=== PATIENT | female | born 1990 | race Caucasian/White ===

== ENCOUNTER → 2019-08-03 | Outpatient (CLI) | payer MEDICAID ==
[2019-08-03 15:18] LABS: HEMATOCRIT 37 % (35-52); HEMOGLOBIN 12.5 G/DL (11.5-16.0); LYMPHOCYTES % (AUTO) 25 % (12-44); MEAN CORPUSCULAR HEMOGLOBIN 29 PG (25-34); MEAN CORPUSCULAR HGB CONC 34 G/DL (32-36); MEAN CORPUSCULAR VOLUME 86 FL (80-99); MEAN PLATELET VOLUME 8.8 FL (7.4-10.4); MONOCYTES % (AUTO) 7 % (0-12); NEUTROPHILS % (AUTO) 65 % (42-75); PLATELET COUNT 414 10^3/uL (130-400); RED CELL DISTRIBUTION WIDTH 13.1 % (10.0-14.5); WHITE BLOOD COUNT 7.9 10^3/uL (4.3-11.0)
[2019-08-03 15:19] LABS: BASOPHILS # (AUTO) 0.1 10^3/uL (0.0-0.1); BASOPHILS % (AUTO) 1 % (0-10); EOSINOPHILS # (AUTO) 0.2 10^3/uL (0.0-0.3); EOSINOPHILS % (AUTO) 2 % (0-10); MONOCYTES # (AUTO) 0.5 X 10^3 (0.0-1.0); NEUTROPHILS # (AUTO) 5.2 X 10^3 (1.8-7.8)
== END ==
LOC: LAB FS 14:47
PROVIDERS: ATTEND Family Medicine
DX: Z34.80 Encounter for supervision of other normal pregnancy, unspecified trimester (principal); Z3A.00 Weeks of gestation of pregnancy not specified
CPT/HCPCS: 36415; 80055; 86703; 87077; 87088; 87186

== ENCOUNTER 2019-08-22 12:36 | Emergency (ER) | payer MEDICAID ==
[~2019-08-22] VITALS: Ht 162.5 cm; Wt 99.6 kg
--- OUTSIDE RECORDS SUMMARY | 2019-08-22 12:41 | XMS REPORT | Continuity of Care Document ---
Author Organization Unknown Address Unknown Phone Unavailable Allergies Active Description Code Type Severity Reaction Onset Reported/Identified Relationship to Patient Clinical Status Yes NKA Drug N/A N/A Yes NKA Drug N/A N/A Medications Medication Packaging Start Date St op Date Route Dosage Sig ibuprofen 201401/31/2017 PO 800 mg / 1 tab ibuprofen 201508/27/2015 PO 800 mg / 1 tab magnesium oxide 03/12/2016 03/18/2016 PO 500 mg / 1 tab multivitamin, 01/31/2017 08/16/2018 PO 0 / 1 clindamycin topical 02/04/2017 02/07/2017 VAG 100 mg / 1 supp ibuprofen 201603/05/2017 PO 800 mg / 1 tab methylergonovine 02/19/2017 02/21/2017 PO 0.2 mg / 1 tab Problems Date Dx Coded Attending Type Code Diagnosis Diagnosed By 05/11/2014 MASTER MCINTOSH Final 795.01 Papanicolaou Smear of Cervix with Atypical Squamous Cells of 05/11/2014 MASTER MCINTOSH Final V22.1 Supervision of Other Normal 05/11/2014 MASTER MCINTOSH Final V73.81 Screening Examination for Human Papillomavirus 05/11/2014 MASTER MCINTOSH Final V73.88 Screening Examination for Other Specified Chlamydial Disease 05/11/2014 MASTER MCINTOSH Final V74.5 Screening Examination for Venereal Disease 05/11/2014 MASTER MCINTOSH Final V76.2 Screening for Malignant Neoplasms of the Cervix 08/22/2014 Santosh Duff Final V22 .1 Supervision of Other Normal 09/14/2014 Santosh Duff Final V12.00 Personal History of Unspecified Infectious and Parasit ic Dis 09/14/2014 Santosh Duff Final V73.88 Screening Examination for Other Specified Chlamydial D isease 09/14/2014 Santosh Duff Final V74 .5 Screening Examination for Venereal Disease 09/29/2014 Final 625.9 U nspecified Symptom Associated with Female Genital Organs 10/15/2014 Zoe Cortez Final 278.01 Morbid Obesity 10/15/2014 Zoe Cortez Final 642.33 Transient Hypertension of , Antepartum Condit ion or 10/15/2014 Zoe Cortez Final 642.43 Mild or Unspecified Pre-Eclampsia, Antepartum Conditio n or C 10/15/2014 Zoe Cortez Final 649.13 Obesity Complicating , Childbirth, or the Pue rperiu 10/15/2014 Zoe Cortez Final V85.43 Body mass index 50.0-59.9, adult 10/17/2014 Santosh Duff Final V22 .1 Supervision of Other Normal 10/17/2014 Santosh Duff Final V28 .6 Encounter for Screening for Streptococcus B of Mot 10/24/2014 Santosh Duff Final 278.01 Morbid Obesity 10/24/2014 Santosh Duff Final 642.43 Mild or Unspecified Pre-Eclampsia, Antepartum Conditio n or C 10/24/2014 Santosh Duff Final 649.13 Obesity Complicating , Childbirth, or the Pue rperiu 10/24/2014 Santosh Duff Final V12.09 Other Personal History of Infectious and Parasitic Dis ease 10/24/2014 Santosh Duff Final V15.82 Personal history of tobacco use. 10/24/2014 Santosh Duff Final V85.43 Body mass index 50.0-59.9, adult 10/31/2014 Zoe Cortez Final 278.01 Morbid Obesity 10/31/2014 Zoe Cortez Final 642.41 Mild or Unspecified Pre-Eclampsia, Delivered, with or withou 10/31/2014 Zoe Cortez Admitting 642.43 Mild or Unspecified Pre-Eclampsia, Antepartum Conditio n or C 10/31/2014 Zoe Cortez Final 649.11 Obesity Complicating , Childbirth, or the Pue rperiu 10/31/2014 Zoe Cortez Final 659.71 Abnormality in Heart Rate or Rhythm, Delivered, with o 10/31/2014 Zoe Cortez Final V27.0 Mother with Single Liveborn 10/31/2014 Zoe Cortez Final V85.43 Body mass index 50.0-59.9, adult 12/26/2014 Santosh Duff Final V24 .2 Routine Follow-Up 12/26/2014 Santosh Duff Final V76 .2 Screening for Malignant Neoplasms of the Cervix 08/17/2015 Rafael Srivastava Final M54.6 Pain in thoracic spine 03/12/2016 Marshall Romo Final E66.9 Obesity, unspecified 03/12/2016 Marshall Romo Final I49.3 Ventricular premature depolarization 03/12/2016 Marshall Romo Final R00.2 Palpitations 03/18/2016 JACQUELINE MOREJON Final I49.3 Ventricular premature depolarization 03/18/2016 JACQUELINE MOREJON Admitting R00.2 Palpitations 01/31/2017 Santosh Duff Final N89 .8 Other specified noninflammatory disorders of vagina 02/03/2017 Santosh Duff Final O28 .0 Abnormal hematological finding on screening of [facility] 02/03/2017 Santosh Duff Final R73 .9 Hyperglycemia, unspecified 02/03/2017 Santosh Duff Final Z3A.08 8 weeks gestation of 02/18/2017 JACQUELINE MOREJON Final O02.1 Missed 02/18/2017 JACQUELINE MOREJON Admitting O20.9 Hemorrhage in early , unspecified 02/19/2017 ROOPA HA Final O03. 9 Complete or unspecified spontaneous without complic 02/19/2017 ROOPA HA Admitting O20.9 Hemorrhage in early , unspecified 02/28/2017 Santosh Duff Final R73 .9 Hyperglycemia, unspecified 02/28/2017 Santosh Duff Final Z34.90 Encounter for supervision of normal , unspeci fied, 03/06/2017 Santosh Duff Final O03 .9 Complete or unspecified spontaneous without complic 03/12/2017 Ayan Ruiz Final M54.12 Radiculopathy, cervical region 08/16/2018 Marisol Humphrey Final E66.9 Obesity, unspecified 08/16/2018 Marisol Humphrey Final S93.40 2A Sprain of unspecified ligament of left ankle, initial encoun 08/16/2018 Marisol Humphrey Admitting S99.912A Unspecified injury of left ankle, initial encounter 08/16/2018 Marisol Humphrey Final W10.9X XA Fall (on) (from) unspecified stairs and steps, initial encou 08/16/2018 Marisol Humphrey Final X50.1X XA Overexertion from prolonged static or awkward postures, init 08/16/2018 Marisol Humphrey Final Y92.[address] in unspecified non-institutional (private) 08/16/2018 Marisol Humphrey Final Y93.01 Activity, walking, marching and hiking 08/20/2018 Gwendolyn Perez Final M25.5 72 Pain in left ankle and joints of left foot 08/20/2018 Gwendolyn Perez Final S9 9.912A Unspecified injury of left ankle, initial encounter 02/28/2019 CARMEL ROBERTS Final E66.9 Obesity, unspecified 02/28/2019 CARMEL ROBERTS Final F10.129 Alcohol abuse with intoxication, unspecified 02/28/2019 CARMEL ROBERTS Final R45.851 Suicidal ideations 02/28/2019 CARMEL ROBERTS Final S40.811A Abrasion of right upper arm, initial encounter 02/28/2019 CARMEL ROBERTS Final S40.812A Abrasion of left upper arm, initial encounter 02/28/2019 CARMEL ROBERTS Final S80.811A Abrasion, right lower leg, initial encounter 02/28/2019 CARMEL ROBERTS Final S80.812A Abrasion, left lower leg, initial encounter 02/28/2019 CARMEL ROBERTS Final X83.8XXA Intentional self-harm by other specified means, initial enco 02/28/2019 CARMEL ROBERTS Final Y90.7 Blood alcohol level of 200-239 mg/100 ml 02/28/2019 CARMEL ROBERTS Final Z68.35 Body mass index (BMI) 35.0-35.9, adult 02/28/2019 CARMEL ROBERTS Final Z72.89 Other problems related to lifestyle 02/28/2019 CARMEL ROBERTS Final Z87.891 Personal history of nicotine dependence 08/05/2019 LAURIE SCHMITZ, KYLE Douglas Ot Z34.80 ENCOUNTER FOR SUPRVSN OF NORMAL PREGNANC 08/05/2019 LAURIE SCHMITZ, KYLE Douglas Ot Z3A.00 WEEKS OF GESTATION OF NOT SPEC Procedures Code Description Performed By Per formed On 73.4 Medic al Induction of Labor SHIRA GIRON 10/26/2014 73.09 Othe r Artificial Rupture of Membranes MACKSHIRA 10/27/2014 74.1 Low C ervical Section SHIRA GIRON 10/28/2014 [id number] [facility] visit for the evalu SHIRA GIRON 08/16/2015 [id number] [facility] visit for the evalu SHIRA GIRON 03/12/2016 [id number] [facility] visit for the evalu SHIRA GIRON 03/18/2016 [id number] [facility] visit for the evalu SHIRA GIRON 02/18/2017 [id number] Intr avenous infusion, hydration; initial SHIRA GIRON 02/19/2017 [id number] Intr avenous infusion, hydration; each ad SHIRA GIRON 02/19/2017 [id number] [facility] visit for the evalu SHIRA GIRON 02/19/2017 51074 [facility] visit for the evalu SHIRA GIRON 08/16/2018 [id number] [facility] visit for the evalu SHIRA GIRON 02/28/2019 Results Test Result Range HCG, URINE QUAL - 08/16/15 23:35 HCG, Urine Qual NEGATIVE NEG Specific [place], UA >1.030 1.003-1.0 30 URINALYSIS, MICROSCOPIC EXAM - 08/16/15 23:35 WBC's, UA 0-5 /hpf OFIVE RBC, UA 0-5 /hpf OFIVE Bacteria, UA NEGATIVE /hpf NEG Squamous Epithelials, UA NEG - FEW /hpf NEGFEW Mucous PRESENT /hpf NEG BASIC METABOLIC PANEL - 03/12/16 12:47 Sodium 137 mmol/L 135-145 Potassium 3.6 mmol/L 3.6-5.0 Chloride 100 mmol/L 101-111 Carbon Dioxide, Total 25 mmol/L 21-31 Glucose Level 161 mg/dL 70-100 BUN 8 mg/dL 6-20 Creatinine 0.5 mg/dL 0.5-1.2 Calcium 8.4 mg/dL 8.5-10.5 Calculated GFR >60.0 mL/min/1.73sq >60 Anion Gap 12 mmol/L NRG MAGNESIUM - 03/12/16 12:47 Magnesium 1.9 mg/dL 1.8-2.5 PHOSPHORUS - 03/12/16 12:47 Phosphorus 2.9 mg/dL 2.5-4.6 TSH, REFLEX TO FREE T4 - 03/12/16 12:47 TSHR 0.91 mIU/mL 0.34-5.60 DRUG OF ABUSE SCREEN - 03/18/16 18:44 Amphet/Methamphet Group NOT DETECTED ND Barbiturates Group NOT DETECTED ND Benzodiazepines Group NOT DETECTED ND Cocaine NOT DETECTED ND Methadone NOT DETECTED ND Opiates Group NOT DETECTED ND Phencyclidine NOT DETECTED ND Cannabinoid (THC) NOT DETECTED ND Oxycodone Screen NOT DETECTED ND Chain Of Custody CHAIN OF CUSTODY NOT PROVID ED. RESULTS MAY ONLY BE USED FOR MEDICAL PURPOSES. NRG MAGNESIUM - 03/18/16 19:19 Magnesium 2.0 mg/dL 1.8-2.5 COMPREHENSIVE METABOLIC PANEL - 03/18/16 19:19 Sodium 135 mmol/L 135-145 Potassium 3.6 mmol/L 3.6-5.0 Chloride 97 mmol/L 101-111 Carbon Dioxide, Total 24 mmol/L 21-31 Glucose Level 122 mg/dL 70-100 BUN 15 mg/dL 6-20 Creatinine 0.4 mg/dL 0.5-1.2 Calcium 8.8 mg/dL 8.5-10.5 Total Protein 7.2 g/dL 6.0-8.0 Albumin 3.7 g/dL 3.2-5.5 Alkaline Phosphatase 78 U/L 42-121 AST (SGOT) 40 U/L 10-42 ALT (SGPT) 66 U/L 10-60 Total Bilirubin <0.2 mg/dL 0.2-1.0 Calculated GFR >60.0 mL/min/1.73sq >60 Anion Gap 14 mmol/L NRG CERVICAL/VAG CULT - 01/31/17 15:42 Specimen Description VAGINAL/CERVICAL N RG Special Requests ROUT+ NRG Gram Stain FEW GRAM POSITIVE COCCI NRG Culture NEGATIVE FOR N. GONORRHOEAE, S. AUREUS, GROUP B STREP, YEAST NRG Report Status FINAL 02/03/2017 NRG Organism CXFL NRG URINALYSIS, CULTURE IF INDICATED - 02/03 10:13 Color, UA YELLOW YELL Clarity, Urine SLIGHTLY CLOUDY Clear Glucose, Urine NEGATIVE mg/dL NEG Bilirubin, UA NEGATIVE NEG Ketones, UA NEGATIVE mg/dL NEG Specific [place], UA 1.019 1.003-1.0 30 Blood, UA NEGATIVE NEG pH, UA 7.0 5.0-9.0 Protein, UA 20 mg/dL NEG Urobilinogen, UA NORMAL mg/dL NORM Nitrites, UA NEGATIVE NEG Leukocyte Esterase, UA NEGATIVE NEG WBC's, UA 25 to 50 /hpf OFIVE RBC, UA 5 to 10 /hpf OFIVE Bacteria, UA MODERATE /hpf NEG Squamous Epithelials, UA MANY /hpf NEGFE W Hyaline Casts 2 to 5 /lpf NEG Urine Culture Indicated NO CULTURE NEEDED NOCULT Specimen Description URINE [facility] ANTIBODY SCREEN - 02/03/17 10:13 Antibody Screen NEG [facility] URINALYSIS, CULTURE IF INDICATED - 02/18 06:55 Color, UA LIGHT YELLOW YELL Clarity, Urine CLEAR Clear Glucose, Urine NEGATIVE mg/dL NEG Bilirubin, UA NEGATIVE NEG Ketones, UA NEGATIVE mg/dL NEG Specific [place], UA 1.016 1.003-1.0 30 Blood, UA MODERATE NEG pH, UA 7.0 5.0-9.0 Protein, UA 10 mg/dL NEG Urobilinogen, UA NORMAL mg/dL NORM Nitrites, UA NEGATIVE NEG Leukocyte Esterase, UA NEGATIVE NEG WBC's, UA 0-5 /hpf OFIVE RBC, UA 10 to 25 /hpf OFIVE Bacteria, UA NEGATIVE /hpf NEG Squamous Epithelials, UA NEG - FEW /hpf NEGFEW Urine Culture Indicated NO CULTURE NEEDED NOCULT Specimen Description URINE [facility] BETA-HCG, QUANTITATIVE - 02/18/17 07:09 BHCG 6419 mIU/mL [facility] Surgical Pathology - 02/19/17 08:27 SURGICALPATH Diagnosis over-read by Bouchra Erwin MD. [facility] COMPREHENSIVE METABOLIC PANEL - 02/19/17 19:43 Sodium 133 mmol/L 135-145 Potassium 3.7 mmol/L 3.6-5.0 Chloride 95 mmol/L 101-111 Carbon Dioxide, Total 23 mmol/L 21-31 Glucose Level 97 mg/dL 70-100 BUN 10 mg/dL 6-20 Creatinine 0.6 mg/dL 0.5-1.2 Calcium 8.7 mg/dL 8.5-10.5 Total Protein 7.9 g/dL 6.0-8.0 Albumin 4.3 g/dL 3.2-5.5 Alkaline Phosphatase 67 U/L 42-121 AST (SGOT) 19 U/L 10-42 ALT (SGPT) 28 U/L 10-60 Total Bilirubin 0.2 mg/dL 0.2-1.0 Calculated GFR >60.0 mL/min/1.73sq >60 Anion Gap 15 mmol/L NRG BETA-HCG, QUANTITATIVE - 02/19/17 19:43 BHCG 3518 mIU/mL NRG BETA-HCG, QUANTITATIVE - 03/06/17 09:36 BHCG 3 mIU/mL NRG DRUG OF ABUSE SCREEN - 02/28/19 05:18 Cannabinoid (THC) Not Detected Not Dete cted Creatinine, Urine, Drug Screen 41.0 mg/dL >=20.0 Chain Of Custody Not provided Complete Benzodiazepines Group Not Detected Not Detected Phencyclidine Not Detected Not Detected Barbituates Group Not Detected Not Dete cted Amph/Meth Group Not Detected Not Detect ed Oxycodone Screen Not Detected Not Detec rosemarie Opiates Group Not Detected Not Detected Methadone (Presence) Not Detected Not D etected Cocaine Not Detected Not Detected CBCA - 02/28/19 05:36 HCT 41.7 % 37.0-47.0 MPV 8.9 fL 8.0-11.7 Hgb 14.2 g/dL 12.0-16.0 RBC 4.98 M/uL 4.00-5.40 Platelet Count 425 k/uL 150-450 RDW 12.6 % 11.5-14.0 WBC 8.2 k/uL 4.0-10.5 MCHC 34.1 g/dL 32.0-36.0 MCH 28.5 pg 27.0-31.0 Platelet Clumps 0 0-100 MCV 83.7 fL 78.0-100.0 Nucleated RBC Absolute 0.0 /uL 0.0-0.0 Differential? Auto NRG HCG, SERUM QUAL - 02/28/19 05:36 HCG, Serum Qual Negative Negative ETHANOL, BLOOD - 02/28/19 05:36 Ethanol Level 233 mg/dL 0-10 SALICYLATE - 02/28/19 05:36 Salicylate Level <0.3 mg/dL 20.0-25.0 ACETAMINOPHEN - 02/28/19 05:36 Acetaminophen Level <5.0 mcg/mL 0.0-50.0 ETHANOL, BLOOD - 02/28/19 10:10 Ethanol Level 120 mg/dL 0-10 Encounters ACCT No. Visit Date/Time Discharge Status Pt. Type Provider Facility Loc./Unit Complaint [id number] 03/07/2017 12:29:00 7 23:59:59 CLS Outpatient Edwin [facility] [id number] 02/20/2017 08:35:00 7 23:59:59 CLS Outpatient Edwin [facility] [id number] 02/19/2017 08:57:47 7 23:59:59 CLS Outpatient Santosh Duff [facility] f/u ER [id number] 02/04/2017 08:59:00 7 23:59:59 CLS Outpatient Edwin [facility] [id number] 02/03/2017 08:59:00 7 23:59:59 CLS Outpatient Edwin [facility] [id number] 01/31/2017 14:51:25 7 23:59:59 CLS Outpatient MASTER MCINTOSH [facility] [employer]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 [id number] 01/27/2017 09:24:00 7 23:59:59 CLS Outpatient Edwin [facility] [id number] 05/02/2016 11:12:08 6 23:59:59 CLS Outpatient GHOSE, TAPAS [facility] [id number] 04/25/2016 09:34:45 6 23:59:59 CLS Outpatient GUASTCURT ORDOÑEZBETH [facility] pvc - palpitations [id number] 04/11/2016 00:00:00 6 23:59:59 CLS Outpatient Scanned Documents [id number] 01/18/2015 08:59:39 5 23:59:59 CLS Outpatient MENDEZ SOUZA [facility] nexplanon removal [id number] 01/17/2015 14:25:00 5 23:59:59 CLS Outpatient Edwin [facility] [id number] 11/15/2014 09:55:15 5 23:59:59 CLS Outpatient DAYNA MASTER Misael candelaria [employer] [facility] 2WPPRT [id number] 11/07/2014 14:36:49 5 23:59:59 CLS Outpatient ARNOL NICKERSON [facility] incision check [id number] 10/26/2014 12:43:35 5 23:59:59 CLS Outpatient Santosh Duff [facility] [employer] [facility] SONO FOR S>D AND GROWTH [id number] 10/17/2014 13:36:20 5 23:59:59 CLS Outpatient Santosh Duff [facility] [facility] [facility] bpp/htn in preg [id number] 10/14/2014 14:26:53 5 23:59:59 CLS Outpatient Kat Estrada [facility] [facility] ob/increased swelling/headac he [id number] 09/29/2014 10:27:51 5 23:59:59 CLS Outpatient RANOL NICKERSON [facility] OB CHECK [id number] 09/14/2014 13:14:26 5 23:59:59 CLS Outpatient Santosh Duff [facility] OB CHECK [id number] 08/31/2014 13:33:29 5 23:59:59 CLS Outpatient ARNOL NICKERSON [facility] OB CHECK [id number] 08/03/2014 16:46:40 5 23:59:59 CLS Outpatient Santosh Duff [facility] [facility] OB CHECK [id number] 08/03/2014 16:46:06 5 23:59:59 CLS Outpatient Santosh Duff [facility] [facility] OB CHECK [id number] 06/08/2014 12:58:07 5 23:59:59 CLS Outpatient Santosh Duff [facility] [facility] ob check [id number] 05/11/2014 09:43:24 4 23:59:59 CLS Outpatient MASTER MCINTOSH [facility] [facility]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 [id number] 08/20/2018 13:18:00 9 23:59:00 DIS Outpatient Gwendolyn Perez LMH Jacqueline th RADS XRAY LT ANKLE [id number] 08/16/2018 16:28:00 9 17:52:00 DIS Emergency Humphrey Melinadesequiel [facility] ER Orthopedic [id number] 02/17/2017 15:26:00 7 13:49:00 DIS Outpatient Ayan Ruiz [facility] PT PT [id number] 03/06/2017 09:10:00 7 23:59:00 DIS Outpatient [facility] LAB LAB WORK [id number] 01/29/2017 07:29:00 7 23:59:00 DIS Outpatient [facility] DEC DIABETIC EDUCATION [id number] 02/19/2017 19:34:00 7 23:00:00 [facility] [id number] 02/18/2017 05:57:00 7 07:49:00 DIS Emergency JACQUELINE MOREJON [facility] ER Related [id number] 02/03/2017 09:56:00 7 23:59:00 DIS Outpatient [facility] LAB LAB WORK [id number] 01/31/2017 17:59:00 7 23:59:00 DIS Outpatient [facility] SONAM ENCNTR FOR GENERAL ADULT MED ICAL EXAM W/O ABNORMAL FINDINGS [id number] 03/18/2016 17:49:00 6 21:15:00 DIS Emergency JACQUELINE MOREJON [facility] ER Chest Pain [id number] 03/12/2016 11:05:00 6 14:10:00 DIS Emergency Marshall Romo [facility] ER Cardiac [id number] 08/16/2015 22:16:00 6 00:29:00 DIS Emergency Rafael Srivastava [facility] ER Back Pain [id number] 12/26/2014 14:14:00 5 23:59:00 DIS Outpatient Santosh Duff Guarantor/person SONAM SCREEN MAL NEOP-CERVIX [id number] 10/26/2014 13:49:00 5 12:00:00 DIS Inpatient Zoe Cortez Guarantor/person M/B DELIVERY [id number] 10/18/2014 16:45:00 5 12:00:00 DIS Inpatient Santosh Duffrantor/person M/B ABNORMAL FINDING ON ANTENATA L SC [id number] 10/17/2014 15:59:00 5 23:59:00 DIS Outpatient Santosh Duff Guarantor/person SONAM ROUTINE MEDICAL EXAM [id number] 10/14/2014 16:43:00 5 18:04:00 DIS Outpatient Zoe Cortez Guarantor/person M/B PIH WORKUP [id number] 09/29/2014 16:09:00 5 23:59:00 DIS Outpatient Guarantor/person SONAM ROUTINE MEDICAL EXAM [id number] 09/14/2014 16:11:00 5 23:59:00 DIS Outpatient Santosh Duff Guarantor/person SONAM ROUTINE MEDICAL EXAM [id number] 08/22/2014 13:51:00 5 23:59:00 DIS Outpatient Santosh Duff Guarantor/person LAB LAB WORK [id number] 05/11/2014 11:42:00 4 23:59:00 DIS Outpatient MASTER MCINTOSHor/person SONAM ROUTINE MEDICAL EXAM [id number] 08/03/2019 14:47:00 020 23:59:59 CLS Outpatient LAURIE SCHMITZ, KYLE [facility] LAB FS SUPERVISION OF AIDA LOYA
--- NOTE | 2019-08-22 12:50 | ED GU-Female ---
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 Patient states she had a urinary tract infection about 10 days ago. Finished her medications but does not really want medication she is on. Past today she's had low back pain. Patient denies fever denies vaginal bleeding denies any significant cramping. Timing/Duration: yesterday, intermittent Severity/Quality: mild Location: unknown Radiation: none Activities at Onset: none Modifying Factors: Worsens With Analgesics, Worsens With Antacids, Worsens With Breathing, Worsens With Coughing, Worsens With Defecating, Worsens With Eating, Worsens With Exercise, Worsens With Lying down, Worsens With Movement, Worsens With Palpation, Worsens With Resting, Worsens With Urinating, Worsens With Vomiting, Worsens With Other Associated Symptoms: No denies symptoms, No abdominal pain, No diaphoresis, No dysuria, No fever/chills, No loss of bladder control, No lower back pain, No lumps, No mass, No nausea/vomiting, No nocturia, No polyuria, No swelling, No syncope, No urinary frequency, No other Allergies and Home Medications Allergies Coded Allergies: No Known Drug Allergies (Unverified , 08/22/19) Patient Home Medication List Home Medication List Reviewed: Yes Review of Systems Review of Systems Constitutional: No no symptoms reported; see HPI; No chills, No diaphoresis, No dizziness, No fever, No malaise, No weakness, No weight gain, No weight loss, No other EENTM: No see HPI, No no symptoms reported, No ear discharge, No hearing loss, No ear pain, No blurred vision, No double vision, No eye pain, No tearing, No vision loss, No dental problems, No hoarseness, No mouth pain, No mouth swelling, No epistaxis, No nose congestion, No nose pain, No throat pain, No throat swelling, No other Respiratory: No no symptoms reported, No see HPI, No cough, No dyspnea on exertion, No hemoptysis, No orthopnea, No phlegm, No short of breath, No stridor, No wheezing, No other Cardiovascular: No no symptoms reported, No see HPI, No chest pain, No edema, No Hx of Intervention, No palpitations, No syncope, No vascular heart diseas, No other Gastrointestinal: No RUQ, No LUQ, No RLQ, No LLQ, No no symptoms reported, No see HPI, No abdominal pain, No constipation, No diarrhea, No dysphagia, No hematemesis, No heartburn, No jaundice, No loss of appetite, No melena, No nausea, No vomiting, No other Genitourinary: denies no symptoms reported, denies see HPI, denies burning, denies discharge, denies dysuria, denies frequency, denies flank pain, denies hematuria, denies incontinence, denies pain, denies urgency, denies other Musculoskeletal: No no symptoms reported, No see HPI, No back pain, No gout, No joint pain, No joint swelling, No muscle pain, No muscle stiffness, No muscle cramps, No muscle twitching, No muscle weakness, No neck pain, No other Skin: No no symptoms reported, No see HPI, No change in color, No change in hair/nails, No dryness, No hx of skin cancer, No lesions, No lumps, No pruritus, No rash, No other All Other Systemes Reviewed Negative Unless Noted: Yes Physical Exam Vital Signs Vital Signs - First Documented 08/22/19 12:39 Temp 36.6 Pulse 62 Resp 16 B/P (MAP) 148/52 (84) Pulse Ox 98 O2 Delivery Room Air Capillary Refill : Height, Weight, BMI Height: '" Weight: lbs. oz. kg; BMI Method: General Appearance: WD/WN, no apparent distress HEENT: PERRL/EOMI, normal ENT inspection, TMs normal, pharynx normal Neck: non-tender, full range of motion, supple, normal inspection Cardiovascular: normal peripheral pulses, regular rate, rhythm, no edema, no gallop, no JVD, no murmur Respiratory: chest non-tender, lungs clear, normal breath sounds, no respiratory distress, no accessory muscle use, respiratory distress Gastrointestinal: normal bowel sounds, non tender, soft, no organomegaly, no pulsatile mass, abnormal bowel sounds Back: normal inspection, no CVA tenderness, no vertebral tenderness, CVA tenderness (R), CVA tenderness (L), other (mild musculoskeletal tenderness with light touch.) Skin: normal color, warm/dry, pallor Progress/Results/Core Measures Suspected Sepsis SIRS Temperature: Pulse: Respiratory Rate: Blood Pressure / Mean: Results/Orders Lab Results Laboratory Tests Test 08/22/19 12:43 Range/Units Urine Color YELLOW Urine Clarity CLOUDY Urine pH 7.0 5-9 Urine Specific [place] 1.020 1.016-1.022 Urine Protein NEGATIVE NEGATIVE Urine Glucose (UA) NEGATIVE NEGATIVE Urine Ketones NEGATIVE NEGATIVE Urine Nitrite NEGATIVE NEGATIVE Urine Bilirubin NEGATIVE NEGATIVE Urine Urobilinogen 0.2 < = 1.0 MG/DL Urine Leukocyte Esterase TRACE H NEGATIVE Urine RBC (Auto) TRACE H NEGATIVE Urine RBC 0-2 /HPF Urine WBC 10-25 H /HPF Urine Squamous Epithelial Cells 10-25 H /HPF Urine Crystals NONE /LPF Urine Bacteria LARGE H /HPF Urine Casts NONE /LPF Urine Mucus NEGATIVE /LPF Urine Culture Indicated YES My Orders Orders - AUBREY VILCHIS MD Urinalysis (08/22/19 12:45) Urine Culture (08/22/19 12:43) Vital Signs/I&O 08/22/19 12:39 Temp 36.6 Pulse 62 Resp 16 B/P (MAP) 148/52 (84) Pulse Ox 98 O2 Delivery Room Air Capillary Refill : Progress Note : Time: 13:03 Progress Note For low back pain. Heating pad and stretching exercises and Tylenol as needed. For pain. Recurrent urinary tract infection take antibiotics as prescribed. Follow up with PCP in 2-3 days. 4 ounces of cranberry juice twice daily. Departure Impression Primary Impression: Urinary tract infection Additional Impression: Low back pain Disposition: 01 HOME, SELF-CARE Condition: Stable Departure-Patient Inst. Decision time for Depature: 13:04 Referrals: KYLE SULLIVAN MD (PCP/Family) Primary Care Physician Patient Instructions: Urinary Tract Infection, Adult (DC), Low Back Pain (DC) Add. Discharge Instructions: For low back pain. Heating pad and stretching exercises and Tylenol as needed. For pain. Recurrent urinary tract infection take antibiotics as prescribed. Follow up with PCP in 2-3 days. 4 ounces of cranberry juice twice daily. All discharge instructions reviewed with patient and/or family. Voiced understanding. Scripts Cephalexin (Cephalexin) 500 Mg Tablet 500 MG PO twice a day, #14 TAB 0 Refills Prov: AUBREY VILCHIS MD 08/22/19 AUBREY VILCHIS MD Aug 22, 2019 12:49
[2019-08-22 12:54] LABS: COLOR,URINE YELLOW
[2019-08-22 12:55] LABS: BILIRUBIN,URINE NEGATIVE (NEGATIVE); CLARITY,URINE CLOUDY; GLUCOSE, URINE (UA) NEGATIVE (NEGATIVE); KETONES,URINE NEGATIVE (NEGATIVE); NITRITE,URINE NEGATIVE (NEGATIVE); PROTEIN,URINE NEGATIVE (NEGATIVE)
[2019-08-22 12:58] LABS: BACTERIA,URINE LARGE /HPF; RBC,URINE 0-2 /HPF
[2019-08-22 12:59] LABS: LEUKOCYTE ESTERASE ,URINE TRACE (NEGATIVE)
[2019-08-22] MEDS ORDERED: CEPH500T PO (13:05)
[2019-08-22 13:07] VITALS: BP 148/52
== END 2019-08-22 13:07 | disposition home or self-care (01) ==
LOC: EDUNIT# 12:36 → ER FS 12:37
DX: O23.41 Unspecified infection of urinary tract in pregnancy, first trimester (principal); Z3A.09 9 weeks gestation of pregnancy
CPT/HCPCS: 81000; 87077; 87088; 87186; 99282

== ENCOUNTER → 2019-09-01 | Outpatient (CLI) | payer MEDICAID ==
[~2019-09-01] MED LIST: CEPH500T PO
== END ==
LOC: LABNPT 14:51
PROVIDERS: ATTEND Family Medicine
DX: Z34.80 Encounter for supervision of other normal pregnancy, unspecified trimester (principal)
CPT/HCPCS: 87491; 87591

== ENCOUNTER 2020-03-14 06:26 | Outpatient (RCR) | payer MEDICAID ==
[~2020-03-14] VITALS: Ht 162.6 cm; Wt 109.1 kg
[2020-03-14] MEDS ORDERED: FERR-84 PO (13:58)
[2020-03-14] MEDS ORDERED: PREN-8 PO (13:58)
== END 2020-03-14 14:14 | disposition home or self-care (01) ==
LOC: PREOP 06:26
PROVIDERS: ATTEND Obstetrics & Gynecology
DX: Z01.818 Encounter for other preprocedural examination (principal)

== ENCOUNTER 2020-03-17 04:21 | Inpatient (IN) | payer MEDICAID ==
[2020-03-17] VITALS (9 sets, daily range): BP systolic 104–131; BP diastolic 41–78
[~2020-03-17] VITALS: Ht 162.6 cm; Wt 111.5 kg
[~2020-03-17 04:21] MED LIST changes: +FERR-84 PO; +PREN-8 PO
--- NOTE | 2020-03-17 04:25 | NUR ---
GEORGIA HERNANDEZ presented to unit via W/C from home/ED, accompanied by Asa, supervisor long goods, with c/o CONTRACTIONS,WATER BROKE. GEORGIA HERNANDEZ weighed, gowned, voided, and to bed. EFHM and TOCO applied, VS taken. GEORGIA HERNANDEZ oriented to bed controls, call light, TV, heat, and A/C controls. Pt. arrived w/SO & child in ED waiting, SO & child sent to car per supervisor long goods.
[2020-03-17] MEDS ORDERED: METOCLOPRAMIDE INJ 10 MG/2 ML (REGLAN) ONE (05:18)
[2020-03-17] MEDS ORDERED: FAMOTIDINE 20MG/2ML IV (PEPCID) ONE (05:19)
[2020-03-17] MEDS ORDERED: ceFAZolin 2 GM IV Premixed 50 ML ONE (05:19)
[2020-03-17] MEDS ORDERED: CITRIC ACID/SOB CIT (BICITRA) 30 ML UDC ONE (05:19)
[2020-03-17] MEDS ORDERED: LACTATED RINGERS 1,000 ML IV PRN (05:26)
[2020-03-17 05:30] LABS: BASOPHILS % (AUTO) 0 % (0-10); EOSINOPHILS # (AUTO) 0.2 10^3/uL (0.0-0.3); EOSINOPHILS % (AUTO) 1 % (0-10); HEMATOCRIT 36 % (35-52); LYMPHOCYTES # (AUTO) 1.5 10^3/uL (1.0-4.0); LYMPHOCYTES % (AUTO) 14 % (12-44); MEAN CORPUSCULAR HEMOGLOBIN 28 pg (25-34); MEAN CORPUSCULAR HGB CONC 33 g/dL (32-36); MEAN CORPUSCULAR VOLUME 85 fL (80-99); MEAN PLATELET VOLUME 9.3 fL (9.0-12.2); MONOCYTES # (AUTO) 0.6 10^3/uL (0.0-1.0); MONOCYTES % (AUTO) 6 % (0-12); NEUTROPHILS # (AUTO) 8.9 10^3/uL (1.8-7.8); NEUTROPHILS % (AUTO) 79 % (42-75); PLATELET COUNT 382 10^3/uL (130-400); WHITE BLOOD COUNT 11.3 10^3/uL (4.3-11.0)
[2020-03-17] MEDS ORDERED: FAMOTIDINE 20MG/2ML IV (PEPCID) IV ONE (05:30)
[2020-03-17] MEDS ORDERED: CITRIC ACID/SOB CIT (BICITRA) 30 ML UDC PO ONE (05:30)
[2020-03-17] MEDS ORDERED: ceFAZolin 2 GM IV Premixed 50 ML IV ONE (05:30)
[2020-03-17] MEDS ORDERED: METOCLOPRAMIDE INJ 10 MG/2 ML (REGLAN) IV ONE (05:30)
[2020-03-17] MEDS: LACTATED RINGERS 1,000 ML IV PRN ×2 (05:33→05:58)
[2020-03-17] MEDS ORDERED: fentaNYL INJECTION 100 MCG/2 ML AMP ONE (05:55)
[2020-03-17] MEDS ORDERED: ONDANSETRON 4 MG/2 ML (SDV) Z0FRAN ONE (05:55)
[2020-03-17] MEDS ORDERED: KETOROLAC 30 MG/ML VIAL ONE (05:55)
[2020-03-17] MEDS ORDERED: BUPIVACAINE 0.5% 30 ML (SENSORCAINE) VIAL ONE (05:55)
--- NOTE | 2020-03-17 06:00 | History & Physical-OB ---
OB - Chief Complaint & HPI Date/Time Date of Admission: Date of Admission: Mar 17, 2020 at 05:00 Date seen by a Provider: Mar 17, 2020 Time Seen by a Provider: 05:55 Chief Complaint/History OB-Reason for Admission/Chief: Section Hx : 2 Hx Para: 1 Expected Date of Delivery: Mar 17, 2020 Gestational Age in Weeks: 38 Gestational Age in Days: 5 Indication for : desires repeat Admission Nurse Assessment Rev: Yes Allergies and Home Medications Allergies Coded Allergies: No Known Drug Allergies (Unverified , 08/22/19) Home Medications Ferrous Sulfate 325 Mg Tablet, 325 MG PO DAILY, (Reported) Vit W-Ca,Fe,FA(<1 mg) 1 Each Tablet, 1 EACH PO DAILY, (Reported) Patient Home Medication List Home Medication List Reviewed: Yes OB - History Hx of Present Care: Yes Ultrasounds: Normal mid trimester US Obstetrical Complications: None Medical Complications: None Patient Past Medical History n/a Social History/Family History 2nd Hand Smoke Exposure: No OB - Admission Exam Physical Exam HEENT: NCAT Heart: Rhythm Normal Lungs: Clear Abdomen: Gravid Extremities: Normal Reflexes: Normal Cervical Dilatation: 1cm Amniotic Fluid: Clear Heart Rate: 130's Accelerations: Accelerations Present Decelerations: No Decelerations Short Term Variability: Present Cemetery Worker Variability: Average (6-25) Intensity: Mild Labs Laboratory Tests Test 03/17/20 05:05 03/17/20 05:30 Range/Units White Blood Count 11.3 H 4.3-11.0 10^3/uL Red Blood Count 4.26 3.80-5.11 10^6/uL Hemoglobin 12.0 11.5-16.0 g/dL Hematocrit 36 35-52 % Mean Corpuscular Volume 85 80-99 fL Mean Corpuscular Hemoglobin 28 25-34 pg Mean Corpuscular Hemoglobin Concent 33 32-36 g/dL Red Cell Distribution Width 13.4 10.0-14.5 % Platelet Count 382 130-400 10^3/uL Mean Platelet Volume 9.3 9.0-12.2 fL Immature Granulocyte % (Auto) 1 % Neutrophils (%) (Auto) 79 H 42-75 % Lymphocytes (%) (Auto) 14 12-44 % Monocytes (%) (Auto) 6 0-12 % Eosinophils (%) (Auto) 1 0-10 % Basophils (%) (Auto) 0 0-10 % Neutrophils # (Auto) 8.9 H 1.8-7.8 10^3/uL Lymphocytes # (Auto) 1.5 1.0-4.0 10^3/uL Monocytes # (Auto) 0.6 0.0-1.0 10^3/uL Eosinophils # (Auto) 0.2 0.0-0.3 10^3/uL Basophils # (Auto) 0.0 0.0-0.1 10^3/uL Immature Granulocyte # (Auto) 0.1 0.0-0.1 10^3/uL OB - Assessment/Plan/Diagnosis Assessment Assessment: section Admission Dx 29 yo @ 38 weeks Previous SROM/ Admission Status: Inpatient Order (span 2 midnights) Reason for Inpatient Admission: Repeat Plan Plan: Section ASIF JENKINS DO Mar 17, 2020 06:00
[2020-03-17] MEDS ORDERED: OXYTOCIN PRE-MIX DRIP 500 ML IV SCH (06:22)
[2020-03-17] MEDS ORDERED: ONDANSETRON 4 MG/2 ML (SDV) Z0FRAN IVP PRN (06:30)
[2020-03-17] MEDS ORDERED: TETANUS,DIPTH,PERTUSS P/F (BOOSTRIX) 0.5 ML VIAL IM SCH (06:30)
[2020-03-17] MEDS ORDERED: MEASLES,MUMPS,RUBELLA 1 EA INJ SC SCH (06:30)
[2020-03-17] MEDS ORDERED: BUPIVACAINE SPINAL 0.75% (SENSORCAINE) 2 ML AMP ONE (06:32)
[2020-03-17] MEDS ORDERED: LIDOCAINE PF 2% 5 ML (XYLOCAINE) VIAL ONE (06:33)
[2020-03-17] MEDS ORDERED: FLU QUADRIvalent (3YOA+) 60 mcg/0.5 ml 2020-21 (AFLURIA) IM ONE (07:00)
[2020-03-17] MEDS ORDERED: OXYTOCIN PRE-MIX DRIP 500 ML IV ONE ×2 (07:37)
--- NOTE | 2020-03-17 08:24 | NUR ---
Pt transferred to room 308 via bed with this RN, and s/o @ side. familiarized with room supplies. call light with in reach.
--- NOTE | 2020-03-17 09:00 | NUR ---
report given to JESSIE Frederick.
--- NOTE | 2020-03-17 09:15 | NUR ---
VSS. PERICARE WITH PAD CHANGE. FF U/1. VAG FLOW LT/MOD RUBRA. NO CLOTS. ORIENTED TO CALLLIGHT OPERATION AND MENU PROCEDURE. S.O. AT BEDSIDE.
[2020-03-17] MEDS: HYDROcodone/APAP 5 MG/325 MG (LORTAB) TAB PO PRN ×2 (09:33→16:38)
[2020-03-17] MEDS: DOCUSATE SODIUM 100 MG (COLACE) CAP PO SCH ×2 (09:33→19:31)
--- NOTE | 2020-03-17 09:33 | NUR ---
LORTAB 2 TABS P.O. FOR C/O ABD PAIN.
--- NOTE | 2020-03-17 11:00 | NUR ---
PT SLEEPING QUIETLY. NO APPARENT DISTRESS.
--- NOTE | 2020-03-17 11:38 | OPERATIVE REPORT ---
DATE OF SERVICE: PREOPERATIVE DIAGNOSES: 1. A 29-year-old G2, P1 at 38 weeks and 5 days gestation. 2. Spontaneous rupture of membranes. 3. Previous section. POSTOPERATIVE DIAGNOSES. 1. A 29-year-old G2, P1 at 38 weeks and 5 days gestation. 2. Spontaneous rupture of membranes. 3. Previous section. PROCEDURE: Repeat low transverse section. SURGEON: Joe Fonseca DO JEWELRY MOLD MAKER: Dr. Tato De La Garza. ANESTHESIA: Spinal. ESTIMATED BLOOD LOSS: 400 mL. URINE OUTPUT: 70 mL clear at the end of the procedure. FLUIDS: 1700 mL lactated Ringer's solution. FINDINGS: A live female weighing 5 pounds 14 ounces, Apgars of 8 and 9. Grossly normal appearing uterus, bilateral fallopian tubes and ovaries. SPECIMEN SENT: None. INDICATIONS FOR PROCEDURE: This 29-year-old female is a patient that had sought care with Dr. Chan. She was scheduled for planned next Friday; however, presented with spontaneous rupture of membranes that occurred approximately 3:00 a.m. this morning, clear fluid was noted. The patient was dilated to 1 cm. So, we decided to proceed with delivery this morning. Risks of the procedure had already been reviewed with the patient in detail and covered in her consent. However, we reviewed them one last time. After all of her questions were answered, consent was obtained, the patient was taken to the operating room. OPERATIVE REPORT IN DETAIL: Once in the operating room, spinal anesthesia was found to be adequate, placed in supine position with leftward tilt, prepped and draped in normal sterile fashion. A timeout was performed, and anesthesia was tested. I then make a Pfannenstiel skin incision through the previously existing scar using knife and carried down to the underlying fascia using Bovie cautery. Fascial incision extended laterally using Bovie cautery. Superior aspect of fascial incision was then grasped with Caesar clamps, tented up and dissected off the underlying rectus muscles. The inferior aspect of the fascial incision was then grasped with Caesar clamps, tented up and dissected off the underlying rectus muscles. Rectus muscle was then dissected down the midline using Burton scissors, which exposed the peritoneum, which I entered bluntly and extended using blunt traction. Malachi ring retractor was placed in the peritoneal incision, which offers excellent lateral sidewall retraction. I then identified the lower uterine segment, which was found to be thinned out and make a low transverse incision to the vesicouterine peritoneum and bluntly dissected this off the lower uterine segment, creating a bladder flap. I then proceeded with my myotomy until membranes were visualized, at which point I extended the uterine incision laterally and superiorly using bandage scissors. Amniotomy was performed using Allis clamp. Clear fluid was noted. was found in the vertex presentation. With gentle fundal pressure, the 's head was elevated up the incision where it was delivered through the incision. The nares and oropharynx were bulb suctioned. Nuchal cord was reduced x1. Anterior and posterior shoulders were delivered. The infant was then brought to the operative field with cord doubly clamped and cut and was handed off to waiting nurses in attendance. Cord blood was collected, 3-vessel cord with intact placenta was delivered spontaneously thereafter. IV Pitocin was initiated to facilitate uterine contraction. Uterine fundus confirmed by manual massage. The uterus was then exteriorized and cleared of all endometrial clots and debris. I then proceeded with closing the uterine incision using 0 Vicryl suture in running locked fashion. Second layer of imbricating 0 Monocryl was placed. Excellent hemostasis was noted after doing this. I then placed the uterus back within the pelvis and copiously irrigated the pelvis using normal saline. Once again, there was no active bleeding noted from any of my dissection planes. I placed Interceed antiadhesive over my low transverse incision and removed the Malachi ring retractor. I then proceeded with closing the peritoneum using 3-0 Vicryl suture in a running fashion. The rectus muscle was reapproximated using 3-0 Vicryl suture in interrupted fashion. The fascia was reapproximated using 0 Vicryl suture in a running fashion. Subcutaneous tissue was reapproximated using 3-0 plain in interrupted subcutaneous stitch and skin reapproximated using 4-0 Monocryl running subcuticular. Dermabond was applied to incision and sterile dressing with adhesive white tape. The patient tolerated the procedure well and sent to recovery area in stable condition. Lap and sponge counts were correct at the end of the procedure. Instrument counts correct as well. Two grams of Ancef given preoperatively for infection prophylaxis. Job ID: [id number] DocumentID: [id number] Dictated Date: 03/17/2020 07:13:18 Gravity Prospecting Operator Helper Date: 03/17/2020 11:37:59 Dictated By: DO SEA BOYCE
--- NOTE | 2020-03-17 12:15 | NUR ---
VSS. PAD CHANGE WITH PERICARE. FF U/1. VAG FLOW LT/MOD RUBRA. NO CLOTS.
[2020-03-17] MEDS: KETOROLAC 30 MG/ML VIAL IV SCH ×2 (13:11→18:58)
--- NOTE | 2020-03-17 13:13 | NUR ---
FLU VACCINE GIVEN IM IN LEFT DELTOID. SITE CLEAR. DENIES URGE TO VOID AT THIS TIME. .
[2020-03-17] MEDS ORDERED: CATHETER FLUSH 10 ML SYR IV SCH (14:00)
--- NOTE | 2020-03-17 14:15 | NUR ---
assisted up to BR. voided 250cc urine without difficulty. una-care instructions given,retuned demonstration.
--- NOTE | 2020-03-17 16:40 | NUR ---
HOLDING . PAIN MEDS GIVEN. S.O. WENT DOWN TO GET BELONGINGS AND HAS NOT RETURNED.
--- NOTE | 2020-03-17 17:30 | NUR ---
PT CALLED S.O. TO RETURN TO . INFORMED THAT HE MAY NOT BE ALLOWED TO GO DOWNSTAIRS ANYMORE R/T NOT RETURNING AND S.O. WAS SEEN SMOKING OUTSIDE.
[2020-03-18] VITALS: BP 118/54
[2020-03-18] MEDS: KETOROLAC 30 MG/ML VIAL IV SCH (02:10)
[2020-03-18 05:52] LABS: BASOPHILS # (AUTO) 0.1 10^3/uL (0.0-0.1); BASOPHILS % (AUTO) 0 % (0-10); EOSINOPHILS # (AUTO) 0.3 10^3/uL (0.0-0.3); EOSINOPHILS % (AUTO) 2 % (0-10); HEMATOCRIT 32 % (35-52); HEMOGLOBIN 10.2 g/dL (11.5-16.0); LYMPHOCYTES # (AUTO) 2.1 10^3/uL (1.0-4.0); LYMPHOCYTES % (AUTO) 18 % (12-44); MEAN CORPUSCULAR HEMOGLOBIN 29 pg (25-34); MEAN CORPUSCULAR HGB CONC 32 g/dL (32-36); MEAN CORPUSCULAR VOLUME 88 fL (80-99); MEAN PLATELET VOLUME 9.3 fL (9.0-12.2); MONOCYTES # (AUTO) 0.7 10^3/uL (0.0-1.0); MONOCYTES % (AUTO) 6 % (0-12); NEUTROPHILS # (AUTO) 8.3 10^3/uL (1.8-7.8); NEUTROPHILS % (AUTO) 73 % (42-75); PLATELET COUNT 315 10^3/uL (130-400); WHITE BLOOD COUNT 11.4 10^3/uL (4.3-11.0)
[2020-03-18 06:50] VITALS: BP 105/53
[2020-03-18] MEDS: HYDROcodone/APAP 5 MG/325 MG (LORTAB) TAB PO PRN ×2 (07:33→14:31)
[2020-03-18] MEDS: DOCUSATE SODIUM 100 MG (COLACE) CAP PO SCH ×2 (07:33→20:41)
[2020-03-18] MEDS: IBUPROFEN 600 MG (MOTRIN) TAB PO SCH ×3 (07:34→20:42)
[2020-03-18] MEDS ORDERED: IBUP-844 PO (08:17)
[2020-03-18] MEDS ORDERED: DCS100C PO (08:17)
[2020-03-18] MEDS ORDERED: ACHD5005 PO (08:17)
--- NOTE | 2020-03-18 08:21 | Discharge Inst-Women's Service ---
Discharge Inst-Women's Serv Depart Medication/Instructions New, Converted or Re-Newed RX: RX on Chart Final Diagnosis POD 2 RLTCS Problems Reviewed?: Yes Consults/Follow Up Additional Follow Up: Yes Orders/Referrals Dr. Fonseca in 7-[address] Chan in 6 weeks Activity Activity: Activity as Tolerated Driving Instructions: No Driving for 1 Week NO SMOKING: NO SMOKING Nothing Inside Vagina: No Douching, No [place], No Tampons Diet Discharge Diet: No Restrictions Symptoms to Report to : Bleeding Excessive, Pain Increased, Fever Over 101 Degrees F, Vaginal Bleeding Increase, Questions/Concerns For Any Problems or Questions: Contact Your Physician Skin/Wound Care Infection Signs and Symptoms: Increased Redness, Foul Odor of Wound, Increased Drainage, Skin Itchy or Has a Rash, Increased Swelling, Temperature Above 101 F Operative Area Clean and Dry: Keep Incision Clean/Dry Stitches/Blue Point/Dermabond: Dermabond, Care of Stitches Bathing Instructions: ASIF Serrato DO Mar 18, 2020 08:21
[2020-03-18 08:48] VITALS: BP 114/56
--- NOTE | 2020-03-18 10:55 | NUR ---
towels to room for pt to shower. pt on toilet attempting bowel movement
[2020-03-18 14:22] VITALS: BP 111/53
--- NOTE | 2020-03-18 19:15 | NUR ---
REPORT RECEIVED AND CARES RESUMED BY THIS NURSE.
[2020-03-18 20:25] VITALS: BP 121/57
--- NOTE | 2020-03-18 20:35 | NUR ---
INITIAL SHIFT ASSESSMENT DONE. VSS. MOTRIN AND COLACE ADMINISTERED. PT IN BED WITH IN ARMS. DENIES ANY NEEDS AT THIS TIME.
--- NOTE | 2020-03-18 22:30 | NUR ---
HOURLY ROUNDING COMPLETED. PT DENIES ANY NEEDS.
--- NOTE | 2020-03-19 00:15 | NUR ---
PT HAS JUST FINISHED AND IS PREPARING TO SUPPLEMENT WITH FORMULA. DENIES ANY PAIN OR NEEDS AT THIS TIME.
--- NOTE | 2020-03-19 02:30 | NUR ---
VSS. PT REPORTS PAIN OF 7/10 AND REQUESTS HYDROCODONE. WILL ADMINISTER AT THIS TIME ALONG WITH MOTRIN.
[2020-03-19] MEDS: IBUPROFEN 600 MG (MOTRIN) TAB PO SCH ×2 (02:31→08:12)
[2020-03-19] MEDS: HYDROcodone/APAP 5 MG/325 MG (LORTAB) TAB PO PRN (02:32)
[2020-03-19 02:35] VITALS: BP 121/62
--- NOTE | 2020-03-19 05:00 | NUR ---
PT RESTING WELL. NO S/S OF DISTRESS OR DISCOMFORT NOTED.
[2020-03-19] MEDS: DOCUSATE SODIUM 100 MG (COLACE) CAP PO SCH (08:12)
[2020-03-19 08:20] VITALS: BP 118/57
--- NOTE | 2020-03-19 08:20 | NUR ---
initial shift assessment completed, see interventions for further. abd incision JEREMY w/ Dermabond intact at site. incision edges well approximated with no sx's of infection noted. POC reviewed- states understanding.
--- NOTE | 2020-03-19 10:45 | NUR ---
Discharge instructions explained, signed and copy to patient per Chiara Caceres RN. prescriptions given to pt and pt verbalized understanding of instructions per Chiara Caceres RN
--- NOTE | 2020-03-19 11:20 | NUR ---
Dr Fonseca to see patient. Will continue with discharge home.
--- NOTE | 2020-03-19 11:27 | Postpartum Progress Note ---
Note Note Day # 2 Subjective: Patient is without complaints. Ambulating, voiding. Tolerating a regular diet without nausea or vomiting. Normal lochia. Pain is well controlled with oral pain medications. Objective: Physical Exam: General - Alert and oriented, no apparent distress Abdomen - Soft, appropriately tender to palpation, non-distended, fundus firm at umbilicus Extremities - no edema, negative Filiberto's bilaterally Incision- c/d/i Assessment: POD 2 RLTCS Plan: Routine care. Encourage breast feeding. Encourage ambulation. Ferrous sulfate supplementation. Plan for discharge today Vitals - Labs Vital Signs - I&O Vital Signs Date Time Temp Pulse Resp B/P (MAP) Pulse Ox O2 Delivery O2 Flow Rate FiO2 03/19/20 02:35 36.4 71 18 121/62 (81) 98 03/18/20 20:25 35.7 82 18 121/57 (78) 98 03/18/20 14:22 36.3 87 18 111/53 (72) 97 Room Air I & O0 03/19/20 07:00 Intake Total 700 ml Output Total 800 ml Balance -100 ml Labs Microbiology 03/17/20 MRSA Screen - Final, Complete MRSA not isolated ASIF JENKINS DO Mar 19, 2020 11:27
[2020-03-19 12:00] VITALS: BP 121/62
--- NOTE | 2020-03-19 12:00 | NUR ---
Discharged to home. Downstairs in wheelchair per [facility] staff and to private vehicle with belongings in hand.
== END 2020-03-19 12:00 | disposition home or self-care (01) | DRG 788 ==
LOC: WSo 04:21 → LDRP 05:00
PROVIDERS: ADMIT Obstetrics & Gynecology; ATTEND Obstetrics & Gynecology
PROC: 10D00Z1 Extraction of Products of Conception, Low, Open Approach (ICD-10-PCS; principal; 2020-03-17 06:14)
DX: O34.211 Maternal care for low transverse scar from previous cesarean delivery (principal); Z3A.38 38 weeks gestation of pregnancy; Z37.0 Single live birth; O99.334 Smoking (tobacco) complicating childbirth; F17.210 Nicotine dependence, cigarettes, uncomplicated; Z23 Encounter for immunization
CPT/HCPCS: 36415; 85025; 86850; 86900; 86901; 87081; 87635; 90686; 94664; 94760; 99212